=== PATIENT | male | born 1970 | race Caucasian/White ===

== ENCOUNTER → 2019-03-24 | Outpatient (CLI) | payer BC ==
--- NOTE | 2019-03-25 09:24 | RADIOLOGY REPORT (SQ) ---
EXAM DESCRIPTION: PET CT SKULL/THIGH COMPLETED DATE/TIME: 03/24/2019 9:07 pm REASON FOR STUDY: SOLID PULM NODULE R91.1 SOLITARY PULMONARY NODULE COMPARISON: None. RADIONUCLIDE AND DOSE: 10.2 mCi F18 FDG The route of agent administration: Intravenous FASTING BLOOD SUGAR: 91 mg/dl CONTRAST TYPE AND DOSE: No CT contrast given. TECHNIQUE: Blood glucose level was verified. Above dose of FDG was injected intravenously. 2-D seg mented attenuation correction images were obtained from the base of the skull to the midthighs. Nonc ontrast CT images were obtained for attenuation correction and fusion with emission images. CT image s were performed without oral or intravenous contrast and are not sensitive for parenchymal lesions. A series of overlapping emission PET images were obtained. Images reviewed and manipulated at [facility] work station by the radiologist. Images stored on PACS. LIMITATIONS: Evaluation is limited due to misregistration artifact. FINDINGS: HEAD AND NECK: Areas of focal increased FDG uptake within the orbits that have no discrete anatomic correlate on the nondiagnostic CT. CHEST: There are several bilateral perifissural and subpleural that measure less than 10 mm and that demonstrate no abnormal FDG uptake on PET ; these include the 3 clustered around the horizontal fiss ure on image 87 of series 3 that measures 7 mm, 6 mm and 4 mm, the 6 mm perifissural nodule in the ri ght lower lobe (image 88 of series 3), the 3 mm subpleural nodule in the right middle lobe (image 94 of series 3), the 4 mm subpleural nodule in the lingula (image 93 of series 3), and the 3 mm perifiss ural nodule in the left lower lobe (image 87 of series 3). No areas of abnormal metabolic activity a re identified in the chest. ABDOMEN AND PELVIS: The liver demonstrates heterogeneous non focal FDG uptake with an average SUV of 2.5. There is physiologic activity throughout the gastrointestinal and genitourinary tracts. No are as of abnormal metabolic activity are identified in the abdomen and pelvis. PROXIMAL LOWER EXTREMITIES: No areas of abnormal metabolic activity in the soft tissues of the lower extremities. BONES: No areas of abnormal metabolic activity in the imaged axial and appendicular skeleton. ADDITIONAL CT FINDINGS: There is mild cardiomegaly and mild to moderate atherosclerotic calcification of the coronary arteries. There is no pericardial effusion. The morphology of the liver is non cir rhotic. The spleen is normal in size. There is no abnormality of the gallbladder, gallbladder and a drenal glands that is apparent on a noncontrast CT. There is no hydronephrosis, nephrolithiasis, hyd roureter or ureterolithiasis. The abdominal aorta is normal in caliber. There is no retroperitoneal adenopathy, hemorrhage or mass. The prostate gland is normal in size. The urinary bladder is partially distended. There are bilater al (left greater than right) hydroceles. The inguinal canals are patulous. There is a hiatal hernia and colonic diverticulosis without diverticulitis. There is no bowel obstru ction, bowel wall thickening or pericolonic/ perienteric inflammation. There is no mesenteric adenop athy, free intraperitoneal fluid, or mesenteric/ omental inflammation. OTHER: No other findings. IMPRESSION: 1. Several bilateral perifissural subpleural nodules that measure less than 10 mm and th at demonstrate no abnormal FDG uptake on PET. The nodules are outside the spatial resolution of PET and continued CT follow up is recommended. 2. Areas of focal increased FDG uptake within the orbits that have no discrete anatomic correlate on the nondiagnostic CT. Correlation with a ophthalmologic evaluation is recommended. TECHNICAL DOCUMENTATION: JOB ID: [id number] [email or web address] All Rights Reserved Reading location - IP/workstation name: [email or web address]
== END ==
LOC: RAD 08:43
PROVIDERS: ATTEND Internal Medicine
DX: R91.1 Solitary pulmonary nodule (principal)
CPT/HCPCS: 78815; A9552